=== PATIENT | female | born 1950 | race African-American/Black ===

== ENCOUNTER 2024-09-27 17:38 | Emergency (ER) | payer MEDICARE, OTHER ==
[~2024-09-27] VITALS: Ht 154.9 cm; Wt 59.0 kg
[2024-09-27 17:45] VITALS: O2SAT 98
[2024-09-27] MEDS: LIDOCAINE HCL 1% 20ML VIAL INFIL ONE (20:30)
[2024-09-27] MEDS ORDERED: IBUP-2030 MT (22:30)
[2024-09-27] MEDS: IBUPROFEN 800MG TABLET PO ONE (22:45)
[2024-09-27 23:15] VITALS: BP 140/69; PULSE 74; RESP 16; TEMP 37.11408; O2SAT 99
== END 2024-09-27 23:15 | disposition home or self-care (01) ==
LOC: ER 17:38
DX: S62.606A Fracture of unspecified phalanx of right little finger, initial encounter for closed fracture (principal); E11.9 Type 2 diabetes mellitus without complications; W18.30XA Fall on same level, unspecified, initial encounter; Y93.89 Activity, other specified; Y92.89 Other specified places as the place of occurrence of the external cause; Y99.8 Other external cause status
CPT/HCPCS: 99285; 26750; 73140; 99152; J3490